=== PATIENT | male | born 1955 | race Caucasian/White ===

== ENCOUNTER 2017-04-10 19:46 | Emergency (ER) | payer OTHER | END 2017-04-10 22:42 | disposition critical access hospital (66) | LOC: ER 19:46 | DX: K56.60 Unspecified intestinal obstruction (principal); D72.829 Elevated white blood cell count, unspecified; F32.9 Major depressive disorder, single episode, unspecified | CPT/HCPCS: 96361; 96365; 96368; 96375; 96376 ==